=== PATIENT | male | born 1960 | race African-American/Black ===

== ENCOUNTER 2016-08-20 05:10 | Emergency (ER) | payer OTHER ==
[2016-08-20] MEDS ORDERED: OXYCODONE/APAP 5/325MG COMBO TABLET ONE (05:37)
[2016-08-20 05:49] VITALS: BMI 40.6
[2016-08-20] MEDS ORDERED: LIDOCAINE 1%/EPI 1:100000 (50 ML MULTI DOSE VIAL) ONE (05:56)
[2016-08-20] MEDS ORDERED: OXYCODONE/APAP 5/325MG COMBO TABLET PO ONE (06:35)
--- NOTE | 2016-08-20 06:35 | PDOC ---
History of Present Illness - General History Source: Patient, Family Exam Limitations: No Limitations - History of Present Illness Initial Comments: 08/20/16 07:02 The patient is a 56 year old male with a significant past medical history of diabetes, triple bypass surgery, hypertension, and ESRD (on dialysis M,W,F), who presents to the emergency department complaining of a knot to the right side of his head for approximately 1 month. The patient reports associated pain to the right side of his head secondary to cyst. The patient reports he is unable to lie on the right side of his head due to associated pressure and headache. The patient reports using some hot compress with minimal relief. He states the cyst has leaked 1 time. The patient reports he presented to an emergency department last week with similar symptoms, where he was prescribed percocet and keflex. The patient reports he is on coumadin. He states his INR last week was 1.9, and approximately 2.9 this week. The patient reports he has become increasingly worried of his cyst, after his mother passed last night. The patient denies any fever, chills, or dizziness. The patient denies any chest pain, palpitations, diaphoresis, or dizziness. Allergies: None reported. Past Surgical History: None reported. Social History: Former smoker. Denies alcohol or drug use. PCP: Not on staff. <Rex Santillan - Last Filed: 08/20/16 07:01> <Indiana Kirkland - Last Filed: 08/21/16 08:21> - General Chief Complaint: Pain Stated Complaint: LUMP IN THE BACK OF NECK Time Seen by Provider: 08/20/16 05:39 Past History <Rex Santillan - Last Filed: 08/20/16 07:01> - Past Medical History Diabetes: Yes Dialysis: Yes (M-W-F) Disorders: Yes (ESRD) HTN: Yes - Psycho/Social/Smoking Cessation Hx Suicidal Ideation: No Smoking History: Former smoker Have you smoked in the past 12 months: No Information on smoking cessation initiated: No Hx Alcohol Use: No Drug/Substance Use Hx: No Substance Use Type: None <Indiana Kirkland - Last Filed: 08/21/16 08:21> - Past Medical History Allergies/Adverse Reactions: Allergies Allergy/AdvReac Type Severity Reaction Status Date / Time No Known Allergies Allergy Verified 08/20/16 05:49 Home Medications: Ambulatory Orders Carvedilol [Coreg -] 6.25 mg PO DAILY 08/20/16 Clindamycin [Cleocin -] 300 mg PO Q6HPO #28 capsule 08/20/16 Glipizide [Glucotrol -] 5 mg PO DAILY 08/20/16 Sevelamer HCl [Renagel] 800 mg PO DAILY 08/20/16 Warfarin Sodium [Coumadin] 6 mg PO DAILY 08/20/16 Review of Systems - Review of Systems Able to Perform ROS?: Yes Comments:: 08/20/16 07:03 GENERAL/CONSTITUTIONAL: No fever or chills. No weakness. HEAD, EYES, EARS, NOSE AND THROAT: +Cyst to right side of head, +pressure to right side of head. No change in vision. No ear pain or discharge. No sore throat. CARDIOVASCULAR: No chest pain or shortness of breath. RESPIRATORY: No cough, wheezing, or hemoptysis. GASTROINTESTINAL: No nausea, vomiting, diarrhea or constipation. GENITOURINARY: No dysuria, frequency, or change in urination. MUSCULOSKELETAL: No joint or muscle swelling or pain. No neck or back pain. SKIN: No rash NEUROLOGIC: +Headache. No vertigo, loss of consciousness, or change in strength/ sensation. ENDOCRINE: No increased thirst. No abnormal weight change. HEMATOLOGIC/LYMPHATIC: No anemia, easy bleeding, or history of blood clots. ALLERGIC/IMMUNOLOGIC: No hives or skin allergy. <Rex Santillan - Last Filed: 08/20/16 07:01> *Physical Exam - Vital Signs Last Vital Signs Temp Pulse Resp BP Pulse Ox 97.8 F 68 19 178/91 97 08/20/16 05:45 08/20/16 05:45 08/20/16 05:45 08/20/16 05:45 08/20/16 05:45 - Physical Exam Comments: 08/20/16 07:03 GENERAL: Awake, alert, and fully oriented, in no acute distress HEAD: 3x3 cm raised tender cyst to the right occipital region. EYES: PERRLA, EOMI, sclera anicteric, conjunctiva clear ENT: Auricles normal inspection, hearing grossly normal, nares patent, oropharynx clear without exudates. Moist mucosa NECK: Normal ROM, supple, no lymphadenopathy, JVD, or masses LUNGS: Breath sounds equal, clear to auscultation bilaterally. No wheezes, and no crackles HEART: Regular rate and rhythm, normal S1 and S2, no murmurs, rubs or gallops ABDOMEN: Soft, nontender, normoactive bowel sounds. No guarding, no rebound. No masses EXTREMITIES: Normal range of motion, no edema. No clubbing or cyanosis. No cords, erythema, or tenderness NEUROLOGICAL: Cranial nerves II through XII grossly intact. Normal speech, normal gait SKIN: Warm, Dry, normal turgor, no rashes or lesions noted. <Rex Santillan - Last Filed: 08/20/16 07:01> - Vital Signs Last Vital Signs Temp Pulse Resp BP Pulse Ox 97.8 F 68 19 178/91 97 08/20/16 05:45 08/20/16 05:45 08/20/16 05:45 08/20/16 05:45 08/20/16 05:45 <Indiana Kirkland - Last Filed: 08/21/16 08:21> Procedures - Incision and Drainage I&D Site: Right: Other (scalp) Betadine cleansed: Yes Anesthesia: 1% Lidocaine w/ Epi Volume(ml): 5 Blade Size: 11 Attempts: 1 Dressing: Yes (bacitracin; after cleaning with peroxide) Progress: 08/20/16 07:09 2 absorbable sutures placed to prevent bleeding as INR is likely elevated as pt is on coumadin. INR is pending. <Indiana Kirkland - Last Filed: 08/21/16 08:21> ED Treatment Course - Medications Given in the ED: ED Medications Discontinued Medications Generic Name Dose Route Start Last Admin Trade Name Tita PRN Reason Stop Dose Admin Clindamycin HCl 300 mg 08/20/16 06:38 08/20/16 06:47 Cleocin - PO 08/20/16 06:39 300 mg ONCE ONE Administration Oxycodone/Acetaminophen 2 combo 08/20/16 06:35 08/20/16 06:38 Percocet 5/325 - PO 08/20/16 06:36 2 combo ONCE ONE Administration <Rex Santillan - Last Filed: 08/20/16 07:01> Medical Decision Making - Medical Decision Making 08/20/16 07:10 Pt came with sebacious cyst to the occipital scalp that is large and bothersome. He went to the ER 2 weeks ago and was given keflex; no I+D performed. Pt states that it has come to a head and popped a few times, nor painful. Pt is requesting that I open it up. He understands that any I+D I perform will be temporary, as sebacious cyst may reccur, if the enture capsule is not removed. I+D successful. Sutures placed (absorbable 0 polysorb) Pt will be discharged by the day ER doc who will check his INR and reevaluate the wound for ooze and bleeding. <Indiana Kirkland - Last Filed: 08/21/16 08:21> *DC/Admit/Observation/Transfer - Attestations Scribe Attestion: 08/20/16 07:03 Documentation prepared by Rex Santillan, acting as medical i d sales for Indiana Kirkland MD. <Rex Santillan - Last Filed: 08/20/16 07:01> <Indiana Kirkland - Last Filed: 08/21/16 08:21> Diagnosis at time of Disposition: Abscess - Discharge Dispostion Disposition: HOME Condition at time of disposition: Stable - Prescriptions Prescriptions: Clindamycin [Cleocin -] 300 mg PO Q6HPO #28 capsule - Referrals Referrals: pmd, one week [Other] - Patient Instructions Printed Discharge Instructions: DI for Skin Abscess
[2016-08-20] MEDS ORDERED: CLINDAMYCIN HCL 300 MG CAPSULE PO ONE (06:38)
[2016-08-20] MEDS ORDERED: CLINDAMYCIN HCL 150 MG CAPSULE (FP) ONE (06:40)
[2016-08-20 06:54] LABS: INR 3.45 (0.82-1.09); PROTHROMBIN TIME (PATIENT) 38.9 SEC (9.98-11.88)
--- NOTE | 2016-08-20 07:36 | PDOC ---
*Physical Exam - Vital Signs Last Vital Signs Temp Pulse Resp BP Pulse Ox 97.8 F 68 19 178/91 97 08/20/16 05:45 08/20/16 05:45 08/20/16 05:45 08/20/16 05:45 08/20/16 05:45 - Physical Exam Comments: 08/20/16 07:33 Patient endorsed to me by Dr. pereyra. Patient is a 56-year-old male with multiple comorbidities who presented with a 3 cm right occipital abscess that was incised and drained at bedside. Pressure dressing was applied. Patient also had received oxycodone and clindamycin. Currently, patient is asymptomatic and with no evidence of active bleeding. INR is noted to be 3.45. Patient will be discharged with wound care instructions with PMD follow-up. ED Treatment Course - ADDITIONAL ORDERS Additional order review: Laboratory Results 08/20/16 06:25 INR 3.45 H - Medications Given in the ED: ED Medications Discontinued Medications Generic Name Dose Route Start Last Admin Trade Name Freq PRN Reason Stop Dose Admin Clindamycin HCl 300 mg 08/20/16 06:38 08/20/16 06:47 Cleocin - PO 08/20/16 06:39 300 mg ONCE ONE Administration Oxycodone/Acetaminophen 2 combo 08/20/16 06:35 08/20/16 06:38 Percocet 5/325 - PO 08/20/16 06:36 2 combo ONCE ONE Administration *DC/Admit/Observation/Transfer Diagnosis at time of Disposition: Abscess - Discharge Dispostion Disposition: HOME Condition at time of disposition: Stable - Prescriptions Prescriptions: Clindamycin [Cleocin -] 300 mg PO Q6HPO #28 capsule - Referrals Referrals: pmd, one week [Other] - Patient Instructions Printed Discharge Instructions: DI for Skin Abscess
[2016-08-20 08:51] VITALS: BP 173/75; PULSE 65; TEMP 97.9
== END 2016-08-20 07:55 | disposition home or self-care (01) ==
LOC: JER 05:10
PROC: 0J900ZZ Drainage of Scalp Subcutaneous Tissue and Fascia, Open Approach (ICD-10-PCS; principal; 2016-08-20)
DX: L02.811 Cutaneous abscess of head [any part, except face] (principal); L72.3 Sebaceous cyst; I25.10 Atherosclerotic heart disease of native coronary artery without angina pectoris; I13.11 Hypertensive heart and chronic kidney disease without heart failure, with stage 5 chronic kidney disease, or end stage renal disease; N18.6 End stage renal disease; Z99.2 Dependence on renal dialysis; Z95.1 Presence of aortocoronary bypass graft; E11.9 Type 2 diabetes mellitus without complications; Z79.01 Long term (current) use of anticoagulants; Z79.84 Long term (current) use of oral hypoglycemic drugs
CPT/HCPCS: 10060; 36415; 85610; 99283-25